=== PATIENT | male | born 1990 | race Caucasian/White ===

== ENCOUNTER 2020-03-06 14:48 | Emergency (ER) | payer SELFPAY ==
[~2020-03-06] VITALS: Ht 175.3 cm; Wt 92.8 kg
[2020-03-06 14:56] VITALS: BP 134/85; PULSE 89; TEMP 96.9
[2020-03-06] MEDS ORDERED: AMOXICILLIN 50500 MG PO (15:24)
[2020-03-06] MEDS ORDERED: NORCO 325 MG-51 TAB PO (15:24)
== END 2020-03-06 15:40 | disposition home or self-care (01) ==
LOC: COL.ER 14:48
DX: K02.9 Dental caries, unspecified (principal); F17.200 Nicotine dependence, unspecified, uncomplicated